=== PATIENT | female | born 1930 | race African-American/Black ===

== ENCOUNTER → 2017-04-16 | Outpatient (CLI) | payer OTHER ==
[2017-04-18 08:59] LABS: SITE Left Upper Forearm; TIME 1350
[2017-04-18 14:41] LABS: FORTY EIGHT HOUR READING 0 mm (0-9); SEVENTY TWO HOUR READING 0 mm (0-9)
== END | disposition home or self-care (01) ==
LOC: LAB 13:11
DX: Z11.1 Encounter for screening for respiratory tuberculosis (principal)
CPT/HCPCS: 86580